=== PATIENT | female | born 1955 | race Caucasian/White ===

== ENCOUNTER 2017-07-12 06:26 | Inpatient (IN) | payer OTHER ==
[2017-07-11 12:05] VITALS: BMI 35.1
[~2017-07-12] VITALS: Ht 160 cm; Wt 91.2 kg
[2017-07-12] VITALS (31 sets, daily range): BP systolic 106–132; BP diastolic 46–84; PULSE 70–89; RESP 5–18; Ht 160 cm; Wt 91.2 kg
[2017-07-12] MEDS ORDERED: ACYC200C2 PO (06:45)
[2017-07-12] MEDS ORDERED: GLIM4TAB PO (06:45)
[2017-07-12] MEDS ORDERED: ZOC10 PO (06:45)
[2017-07-12] MEDS ORDERED: METF500T4 PO ×2 (06:45)
[2017-07-12] MEDS ORDERED: ERGO500037 PO (06:45)
[2017-07-12] MEDS ORDERED: LISI10TA2 PO (06:45)
[2017-07-12] MEDS ORDERED: FLUO10CA17 PO (06:45)
[2017-07-12] MEDS ORDERED: LORA10CA PO (06:45)
[2017-07-12] MEDS ORDERED: SITA100T8 PO (06:45)
[2017-07-12] MEDS ORDERED: OMEP20CA16 PO (06:45)
[2017-07-12] MEDS ORDERED: POLYMYXIN B 500000 UNIT INJ ONE (07:46)
[2017-07-12] MEDS ORDERED: TRANEXAMIC ACID 910 MG in SOD CHLORIDE 0.9% 100 ML IVPB STA (07:56)
[2017-07-12] MEDS ORDERED: morphine SULFATE/PF (10 MG/10 ML) INJ ONE (07:58)
--- NOTE | 2017-07-12 07:58 | HPN ---
Date/Time of Note Date/Time of Note DATE: 07/12/17 TIME: 07:58 Interval H&P Admission Note Pt. seen H&P reviewed: No system changes TOMAS ADAMS MD Jul 12, 2017 07:58
[2017-07-12] MEDS ORDERED: PHENYLephrine (100 MCG/ML) 5ML SYG ONE (08:30)
[2017-07-12] MEDS ORDERED: PROPOFOL 20 ML ONE (08:36)
[2017-07-12] MEDS ORDERED: CEFAZOLIN 1 GM INJ ONE (08:37)
[2017-07-12] MEDS ORDERED: LIDOCAINE 2% (SDV) 5 ML INJ ONE (08:37)
[2017-07-12] MEDS ORDERED: ROCURONIUM 50 MG INJ ONE (08:37)
[2017-07-12] MEDS ORDERED: SUCCINYLCHOLINE CHLORIDE 100 MG/5 ML SYG IV ONE (08:37)
[2017-07-12] MEDS ORDERED: FENTAnyl 50 MCG/ML VIAL IV PRN (09:00)
[2017-07-12] MEDS ORDERED: MEPERIDINE 25 MG INJ IV PRN (09:00)
[2017-07-12] MEDS ORDERED: ONDANSETRON 4 MG INJ IV PRN (09:00)
[2017-07-12] MEDS ORDERED: METOCLOPRAMIDE 10 MG INJ IV PRN (09:00)
[2017-07-12] MEDS ORDERED: HYDROmorphONE (0.2 MG/ML) 10ML SYG IV PRN (09:00)
[2017-07-12] MEDS ORDERED: DIPHENHYDRAMINE 50 MG INJ IV PRN (09:00)
[2017-07-12] MEDS ORDERED: TRANEXAMIC ACID 500 MG in SOD CHLORIDE 0.9% 100 ML IV ONE (09:00)
[2017-07-12] MEDS ORDERED: BACITRACIN 50000 UNITS INJ IRR ONE (09:06)
[2017-07-12] MEDS ORDERED: POLYMYXIN B 500000 UNIT INJ IRR ONE (09:07)
[2017-07-12] MEDS ORDERED: POLYMYXIN/BACITRACIN 1L IRRIG IRR ONE (09:08)
[2017-07-12] MEDS ORDERED: SUGAMMADEX SODIUM 200 MG/2 ML VIAL IV ONE (09:46)
--- NOTE | 2017-07-12 10:45 | OPR ---
Date/Time of Note Date/Time of Note DATE: 07/12/17 TIME: 10:41 Operative Report Free Text/Dictation DATE OF OPERATION: July 12, 2017 PREOPERATIVE DIAGNOSIS: Right knee osteoarthritis. POSTOPERATIVE DIAGNOSIS: Right knee osteoarthritis. OPERATION PERFORMED: Right total knee replacement. SURGEON: Tomas Adams MD TRANSFORMATION COACH: Ibis Marley ANESTHESIOLOGIST: Dr. Britton ANESTHESIA: General endotracheal anesthesia with spinal anesthetic and an adductor canal block. ESTIMATED BLOOD LOSS: 100 cc INDICATIONS FOR PROCEDURE: This is a 62-year-old female who has had progressive pain in the right knee. The patient has failed nonoperative treatment and now presents for elective total knee replacement. Risks and benefits were discussed with the patient, risks including but not limited to infection, bleeding, blood clots, dislocation, fracture, knee stiffness, nerve damage, blood vessel damage, along with other medical, anesthetic and surgical complications were discussed. Informed consent was obtained. DESCRIPTION OF PROCEDURE: The patient's correct extremity was identified in the preoperative area. The patient was brought back to the operating room where a spinal anesthetic was placed followed by an adductor canal block. The correct extremity was then prepped and draped in the standard sterile manner. A timeout was performed. Esmarch was used to exsanguinate. The thigh tourniquet was inflated to 250 mmHg. I then made a standard midline incision for approaching the knee. I went through skin and subcutaneous tissue, made a medial parapatellar arthrotomy. Then, flexed the knee and introduced an intramedullary alignment guide. Distal femoral cut was made and then the extramedullary alignment guide was used to make the tibial cut. Flexion and extension gaps were checked. There were symmetric. The knee went from full extension to full flexion. I then turned my attention to the patella. I used an gwou-cew-paa mill type cutting guide, cut the patellar to appropriate thickness and sized the patella. I then trialed the patella. The patella tracked well without any external pressure. I then made the peg holes for the femoral trial. Punched the tibia. I took out all trial components. Thoroughly irrigated the bony surfaces, dried them with a lap sponge. I then proceeded to cement the tibia, femur and patellar components. A trial insert was used till the cement hardened. After the cement hardened, I thoroughly irrigted the knee. The knee was well balanced. I then let down the tourniquet, obtained adequate hemostasis. I thoroughly irrigated the knee. I then impacted the appropriate all poly insert until it locked into place and I had full range of motion with just a jog of opening with varus and valgus stress. I then turned my attention to closure. I closed the medial parapatellar arthrotomy with interrupted #1 Vicryl, subcutaneous tissue was closed with 2-0 Vicryl, skin with clarence. Dry sterile dressings were applied. The patient had good perfusion to her foot with a 2+ dorsalis pedis pulse. She was then extubated and transported to recovery in stable condition. TOMAS ADAMS MD Jul 12, 2017 10:45
[2017-07-12] MEDS ORDERED: NALOXONE (0.4 MG/ML) INJ IV PRN (11:00)
[2017-07-12] MEDS: CEFAZOLIN 1 GM/50 ML (PMX) 50 ML IVPB SCH ×2 (11:21→18:41)
[2017-07-12] MEDS: ONDANSETRON 4 MG INJ IV SCH ×3 (11:21→23:07)
--- NOTE | 2017-07-12 11:43 | RADRPT ---
PROCEDURE: XR Knee. CLINICAL INDICATION: Postoperative evaluation TECHNIQUE: 2 images of the right knee are available for review. COMPARISON: None available FINDINGS: There is a total right knee arthroplasty in anatomic alignment. There is no acute fracture. Ther e is anterior soft tissue swelling and gas with anterior clarence. There is an anterior drain. IMPRESSION: Recent total right knee arthroplasty as above. RPTAT: UU .Dave Gaytan MD, MD Date Time Electronically viewed and signed by .Dave Gaytan MD, on 07/12/2017 11:42 .K/
--- NOTE | 2017-07-12 12:37 | HP ---
Date/Time of Note Date/Time of Note DATE: 07/12/17 TIME: 12:21 Assessment/Plan VTE Prophylaxis VTE Prophylaxis Intervention: SCD's Lines/Catheters IV Catheter Type (from Nrsg): Peripheral IV Central line still needed: Yes Urinary Cath still in place: Yes Reason Cath still needed: urinary retention Assessment/Plan Assessment/Plan -Severe osteoarthritis of right knee, status post right total knee replacement, continue to follow-up surgical recommendations. Continue postoperative antibiotics, continue aspirin, Roxicodone for pain and Zofran as needed for nausea. -Diabetes mellitus type 2 continue patient's home diabetes medication, Accu- Chek q. before meals and at bedtime with mild algorithm sliding scale coverage of NovoLog -Hypertension, continue lisinopril -Dyslipidemia, continue statin -Depression continue Prozac Further recommendations based on clinical course. Plan of care discussed with Dr. Ruiz. HPI/ROS Admit Date/Time Admit Date/Time Jul 12, 2017 at 06:26 Hx of Present Illness The patient is 62-year-old female with past medical history including diabetes, hypertension, chronic kidney disease stage III with baseline creatinine of 1.2, hyperparathyroidism, hyperlipidemia, depression, and obesity. The patient was diagnosed with right knee osteoarthritis with loss of mobility and with failure of nonoperative treatment. Patient was evaluated by Dr. Orellana in orthopedic surgery consultation, and patient was brought to the hospital and underwent right total knee replacement. Postoperatively patient experienced pain and patient is admitted for further evaluation and management. She denies fever chills denies shortness of breath denies any chest pain, denies abdominal pain. ROS 12 point review of system is negative unless for mentioned in HPI PMH/Family/Social Past Medical History Per HPI Medical History: diabetes, hypertension, renal disease Past Surgical History Status post 3, status post cholecystectomy, status post left wrist surgery for carpal tunnel syndrome Family History Significant Family History: diabetes (Siblings), hypertension Social History Alcohol Use: occasionally Smoking Status: Never smoker Drug Use: none Exam/Review of Systems Vital Signs Vitals Vital Signs Date Time Temp Pulse Resp B/P Pulse Ox O2 Delivery O2 Flow Rate FiO2 07/12/17 11:32 74 5 127/66 96 Room Air 07/12/17 10:35 98.9 Exam Constitutional: alert, oriented Head: normocephalic Neck: supple Respiratory: normal air movement Cardiovascular: nl pulses Gastrointestinal: non-tender, soft Musculoskeletal: other (Status post right total knee replacement) Extremities: normal pulses Neurological: nl mental status Medications Medications Current Medications Oxycodone HCl (Roxicodone) 20 mg Q3H PRN PO PAIN LEVEL 8-10; Start 07/12/17 at 11:00 Oxycodone HCl (Roxicodone) 10 mg Q3H PRN PO PAIN LEVEL 4-7; Start 07/12/17 at 11:00 Oxycodone HCl (Roxicodone) 5 mg Q3H PRN PO PAIN LEVEL 1-3; Start 07/12/17 at 11 :00 Ondansetron HCl 4 mg 4 mg Q6H IV Last administered on 07/12/17 11:21; Admin Dose 4 MG; Start 07/12/17 at 11:00; Stop 07/13/17 at 05:01 Cefazolin Sodium (Ancef 1 Gm/50 ml (Pmx)) 50 ml @ 100 mls/hr Q8H IVPB Last administered on 07/12/17 11:21; Admin Dose 100 MLS/HR; Start 07/12/17 at 11:00 ; Stop 07/13/17 at 03:29 Aspirin (Ecotrin) 325 mg BID PO ; Start 07/13/17 at 09:00 Docusate Sodium (Colace) 200 mg BID PO ; Start 07/13/17 at 09:00; Stop 07/16/17 at 08:59 Naloxone HCl (Narcan) 0.2 mg Q2M PRN IV DECREASED REPIRATORY RATE; Start at 11:00 ZONIA CRANE Jul 12, 2017 12:31
[2017-07-12] MEDS: oxyCODONE 5 MG TAB PO PRN ×5 (12:51→23:24)
[2017-07-12] MEDS: metFORMIN 500 MG TAB PO SCH (17:25)
[2017-07-12] MEDS: INSULIN ASPART [NOVOLOG] 3 ML PEN SC SCH ×2 (17:31→20:13)
[2017-07-12] MEDS: ATORVASTATIN 10 MG TAB PO SCH (21:29)
[2017-07-13 01:00] VITALS: BP 153/63; PULSE 104; RESP 18
[2017-07-13] MEDS ORDERED: oxyCODONE 5 MG TAB PO ONE (01:30)
[2017-07-13] MEDS: ACCU-CHEK XX SCH (02:00)
[2017-07-13] MEDS ORDERED: ACCU-CHEK XX SCH (02:00)
[2017-07-13] MEDS: CEFAZOLIN 1 GM/50 ML (PMX) 50 ML IVPB SCH (03:10)
[2017-07-13] MEDS: morphine 1 MG/ML 30 ML (PCA) IV SCH ×2 (04:22→12:42)
[2017-07-13 05:00] VITALS: BP 140/62; PULSE 108; RESP 18
[2017-07-13] MEDS: ONDANSETRON 4 MG INJ IV SCH (05:22)
[2017-07-13] MEDS: PANTOPRAZOLE (EC) 40 MG TAB PO SCH (05:22)
[2017-07-13 06:03] LABS: BASOPHILS % 0.2 % (0.0-2.0); HEMATOCRIT 31.6 % (37.0-47.0); HEMOGLOBIN 10.3 g/dl (12.0-16.0); LYMPHOCYTES % 11.2 % (15.0-51.0); MEAN CORPUSCULAR HEMOGLOBIN 31.1 pg (29.0-33.0); MEAN CORPUSCULAR HGB CONC 32.6 g/dl (32.0-37.0); MEAN CORPUSCULAR VOLUME 95.5 fl (82.0-101.0); MEAN PLATELET VOLUME 11.6 fl (7.4-10.4); MONOCYTE # 1.3 10^3/ul (0.3-0.9); MONOCYTES % 13.9 % (0.0-11.0); NEUTROPHILS % 74.3 % (39.0-77.0); PLATELET COUNT 147 10^3/UL (140-415); RED BLOOD COUNT 3.31 10^6/ul (4.20-5.40); RED CELL DISTRIBUTION WIDTH 12.5 % (11.5-14.5); WHITE BLOOD COUNT 9.2 10^3/ul (4.8-10.8)
[2017-07-13 06:25] LABS: CALCIUM 9.8 mg/dl (8.4-10.2); CREATININE 1.17 mg/dl (0.44-1.00); POTASSIUM 4.6 mmol/L (3.5-5.1)
[2017-07-13] MEDS ORDERED: GLIMEPIRIDE 4 MG TAB PO SCH (07:50)
[2017-07-13 08:20] VITALS: BP 139/67; RESP 17
[2017-07-13] MEDS: metFORMIN 500 MG TAB PO SCH ×2 (08:45→17:38)
[2017-07-13] MEDS: DOCUSATE SODIUM 100 MG CAP PO SCH ×2 (08:45→20:18)
[2017-07-13] MEDS: ASPIRIN (EC) 325 MG TAB PO SCH ×2 (08:45→20:18)
[2017-07-13] MEDS: LINAGLIPTIN 5 MG TABLET PO SCH (08:45)
[2017-07-13] MEDS: LISINOPRIL 10 MG TAB PO SCH (08:46)
[2017-07-13] MEDS: INSULIN ASPART [NOVOLOG] 3 ML PEN SC SCH ×4 (08:54→20:44)
[2017-07-13] MEDS: FLUOXETINE 10 MG CAP PO SCH (08:56)
--- NOTE | 2017-07-13 09:58 | PN ---
Date/Time of Note Date/Time of Note DATE: 07/13/17 TIME: 09:58 Assessment/Plan VTE Prophylaxis VTE Prophylaxis Intervention: other Lines/Catheters IV Catheter Type (from Nrsg): Peripheral IV Urinary Cath still in place: Yes Reason Cath still needed: skin wounds contaminated by urine Assessment/Plan Chief Complaint/Hosp Course -Severe osteoarthritis of right knee, status post right total knee replacement, continue to follow-up surgical recommendations. Continue postoperative antibiotics, continue aspirin, Roxicodone for pain and Zofran as needed for nausea. -Diabetes mellitus type 2 continue patient's home diabetes medication, Accu- Chek q. before meals and at bedtime with mild algorithm sliding scale coverage of NovoLog -Hypertension, continue lisinopril -Dyslipidemia, continue statin -Depression continue Prozac Problems: Subjective 24 Hr Interval Summary Free Text/Dictation Patient has pain in knee Exam/Review of Systems Vital Signs Vitals Vital Signs Date Time Temp Pulse Resp B/P Pulse Ox O2 Delivery O2 Flow Rate FiO2 07/13/17 08:20 99.3 112 17 139/67 100 07/13/17 05:00 Nasal Cannula Intake and Output 07/12/17 07/12/17 07/13/17 15:00 23:00 07:00 Intake Total 1200 ml 630 ml 530 ml Output Total 490 ml 600 ml 750 ml Balance 710 ml 30 ml -220 ml Exam Constitutional: well developed Head: atraumatic, normocephalic Neck: supple Respiratory: clear to auscultation Cardiovascular: regular rate and rhythm Gastrointestinal: non-tender, soft Extremities: normal pulses Results Result Diagram: 07/13/17 0514 07/13/17 0513 Results 24 hrs Laboratory Tests Test 07/12/17 12:45 07/12/17 17:29 07/12/17 20:04 07/13/17 05:13 Bedside Glucose 148 78 165 Sodium Level 131 L Potassium Level 4.6 Chloride Level 98 Carbon Dioxide Level 27 Anion Gap 11 Blood Urea Nitrogen 14 Creatinine 1.17 H Glucose Level 198 Calcium Level 9.8 Test 07/13/17 05:14 07/13/17 08:43 White Blood Count 9.2 Red Blood Count 3.31 L Hemoglobin 10.3 L Hematocrit 31.6 L Mean Corpuscular Volume 95.5 Mean Corpuscular Hemoglobin 31.1 Mean Corpuscular Hemoglobin Concent 32.6 Red Cell Distribution Width 12.5 Platelet Count 147 Mean Platelet Volume 11.6 H Neutrophils % 74.3 Lymphocytes % 11.2 L Monocytes % 13.9 H Eosinophils % 0.0 Basophils % 0.2 Nucleated Red Blood Cells % 0.0 Neutrophils # (Manual) 7 Lymphocytes # 1.0 Monocytes # 1.3 H Eosinophils # 0.0 Basophils # 0.0 Nucleated Red Blood Cells # 0.0 Bedside Glucose 175 Medications Medications Current Medications Oxycodone HCl (Roxicodone) 20 mg Q3H PRN PO PAIN LEVEL 8-10 Last administered on 07/12/17 23:24; Admin Dose 20 MG; Start 07/12/17 at 11:00 Oxycodone HCl (Roxicodone) 10 mg Q3H PRN PO PAIN LEVEL 4-7 Last administered on 07/12/17 17:25; Admin Dose 10 MG; Start 07/12/17 at 11:00 Oxycodone HCl (Roxicodone) 5 mg Q3H PRN PO PAIN LEVEL 1-3 Last administered on 07/12/17 14:25; Admin Dose 5 MG; Start 07/12/17 at 11:00 Aspirin (Ecotrin) 325 mg BID PO Last administered on 07/13/17 08:45; Admin Dose 325 MG; Start 07/13/17 at 09:00 Docusate Sodium (Colace) 200 mg BID PO Last administered on 07/13/17 08:45; Admin Dose 200 MG; Start 07/13/17 at 09:00; Stop 07/16/17 at 08:59 Naloxone HCl (Narcan) 0.2 mg Q2M PRN IV DECREASED REPIRATORY RATE; Start at 11:00 Fluoxetine HCl (Prozac) 10 mg DAILY PO Last administered on 07/13/17 08:56; Admin Dose 10 MG; Start 07/13/17 at 09:00 Lisinopril (Zestril) 10 mg DAILY PO Last administered on 07/13/17 08:46; Admin Dose 10 MG; Start 07/13/17 at 09:00 Pantoprazole (Protonix Tab) 40 mg DAILY@06 PO Last administered on 07/13/17 05 :22; Admin Dose 40 MG; Start 07/13/17 at 06:00 Atorvastatin Calcium (Lipitor) 10 mg DAILY@21 PO Last administered on 21:29; Admin Dose 10 MG; Start 07/12/17 at 21:00 Linagliptin (Tradjenta) 5 mg DAILY PO Last administered on 07/13/17 08:45; Admin Dose 5 MG; Start 07/13/17 at 09:00 Diagnostic Test (Pha) (Accu-Chek) 1 ea 02 XX ; Start 07/13/17 at 02:00 Morphine Sulfate (morphine) 0 MG/HR CONTINUOUS RATE 1... Q4PCA IV Last administered on 07/13/17 04:22; Admin Dose 30 MG; Start 07/13/17 at 02:00 VITALIY SAAVEDRA Jul 13, 2017 09:58
[2017-07-13] MEDS ORDERED: CEPASTAT LOZENGE MT PRN (11:30)
[2017-07-13 14:00] VITALS: BP 133/61; RESP 15
[2017-07-13 19:10] VITALS: BP 125/59; RESP 20
[2017-07-13] MEDS: ATORVASTATIN 10 MG TAB PO SCH (20:18)
[2017-07-14] MEDS: morphine 1 MG/ML 30 ML (PCA) IV SCH (00:21)
[2017-07-14 01:46] VITALS: BP 122/59; RESP 18
[2017-07-14] MEDS: ACCU-CHEK XX SCH (02:00)
[2017-07-14 05:08] LABS: ABNORMAL IP MESSAGE 1; BASOPHILS % 0.2 % (0.0-2.0); EOSINOPHILS # 0.1 10^3/ul (0.0-0.5); EOSINOPHILS % 0.7 % (0.0-7.0); HEMATOCRIT 29.4 % (37.0-47.0); LYMPHOCYTES # 1.8 10^3/ul (0.8-2.9); LYMPHOCYTES % 15.6 % (15.0-51.0); MEAN CORPUSCULAR HEMOGLOBIN 31.7 pg (29.0-33.0); MEAN CORPUSCULAR VOLUME 93.3 fl (82.0-101.0); MEAN PLATELET VOLUME 11.2 fl (7.4-10.4); MONOCYTE # 1.9 10^3/ul (0.3-0.9); NEUTROPHILS % 66.4 % (39.0-77.0); PLATELET COUNT 150 10^3/UL (140-415); RED BLOOD COUNT 3.15 10^6/ul (4.20-5.40); RED CELL DISTRIBUTION WIDTH 12.4 % (11.5-14.5); WHITE BLOOD COUNT 11.3 10^3/ul (4.8-10.8)
[2017-07-14 05:39] LABS: CALCIUM 10.1 mg/dl (8.4-10.2); CREATININE 1.26 mg/dl (0.44-1.00); POTASSIUM 4.6 mmol/L (3.5-5.1)
[2017-07-14] MEDS: PANTOPRAZOLE (EC) 40 MG TAB PO SCH (06:07)
[2017-07-14 06:19] LABS: POSITIVE DIFF @See below
[2017-07-14 06:20] LABS: MONOCYTES % 16.7 % (0.0-11.0)
[2017-07-14 07:57] VITALS: BP 118/55; RESP 16
[2017-07-14] MEDS: FLUOXETINE 10 MG CAP PO SCH (08:38)
[2017-07-14] MEDS: ASPIRIN (EC) 325 MG TAB PO SCH ×2 (08:38→20:32)
[2017-07-14] MEDS: DOCUSATE SODIUM 100 MG CAP PO SCH ×2 (08:38→20:32)
[2017-07-14] MEDS: metFORMIN 500 MG TAB PO SCH ×2 (08:38→18:06)
[2017-07-14] MEDS: LINAGLIPTIN 5 MG TABLET PO SCH (08:39)
[2017-07-14] MEDS: LISINOPRIL 10 MG TAB PO SCH (08:39)
[2017-07-14] MEDS: INSULIN ASPART [NOVOLOG] 3 ML PEN SC SCH ×4 (08:40→20:31)
--- NOTE | 2017-07-14 11:46 | PN ---
Date/Time of Note Date/Time of Note DATE: 07/14/17 TIME: 11:46 Assessment/Plan VTE Prophylaxis VTE Prophylaxis Intervention: other Lines/Catheters IV Catheter Type (from Nrsg): Peripheral IV Urinary Cath still in place: Yes Reason Cath still needed: skin wounds contaminated by urine Assessment/Plan Chief Complaint/Hosp Course -Severe osteoarthritis of right knee, status post right total knee replacement, continue to follow-up surgical recommendations. Continue postoperative antibiotics, continue aspirin, Roxicodone for pain and Zofran as needed for nausea. -Diabetes mellitus type 2 continue patient's home diabetes medication, Accu- Chek q. before meals and at bedtime with mild algorithm sliding scale coverage of NovoLog -Hypertension, continue lisinopril -Dyslipidemia, continue statin -Depression continue Prozac Problems: Subjective 24 Hr Interval Summary Free Text/Dictation Has some pain but still able to ambulate Exam/Review of Systems Vital Signs Vitals Vital Signs Date Time Temp Pulse Resp B/P Pulse Ox O2 Delivery O2 Flow Rate FiO2 07/14/17 07:57 99.3 110 16 118/55 93 07/13/17 05:00 Nasal Cannula Intake and Output 07/13/17 07/13/17 07/14/17 14:59 22:59 06:59 Intake Total 600 ml 600 ml Output Total 2000 ml 500 ml Balance -1400 ml 100 ml Exam Constitutional: well developed Head: atraumatic, normocephalic Neck: supple Respiratory: clear to auscultation Cardiovascular: regular rate and rhythm Gastrointestinal: non-tender, soft Extremities: normal pulses Results Result Diagram: 07/14/17 0441 07/14/17 0441 Results 24 hrs Laboratory Tests Test 07/13/17 12:24 07/13/17 17:37 07/13/17 20:20 07/14/17 02:11 Bedside Glucose 206 215 223 H 196 Test 07/14/17 04:41 07/14/17 08:34 White Blood Count 11.3 #H Red Blood Count 3.15 L Hemoglobin 10.0 L Hematocrit 29.4 L Mean Corpuscular Volume 93.3 Mean Corpuscular Hemoglobin 31.7 Mean Corpuscular Hemoglobin Concent 34.0 Red Cell Distribution Width 12.4 Platelet Count 150 Mean Platelet Volume 11.2 H Neutrophils % 66.4 Lymphocytes % 15.6 Monocytes % 16.7 H Eosinophils % 0.7 Basophils % 0.2 Nucleated Red Blood Cells % 0.0 Neutrophils # (Manual) 7 Lymphocytes # 1.8 Monocytes # 1.9 H Eosinophils # 0.1 Basophils # 0.0 Nucleated Red Blood Cells # 0.0 Sodium Level 129 L Potassium Level 4.6 Chloride Level 95 L Carbon Dioxide Level 28 Anion Gap 11 Blood Urea Nitrogen 14 Creatinine 1.26 H Glucose Level 196 Calcium Level 10.1 Bedside Glucose 162 Medications Medications Current Medications Oxycodone HCl (Roxicodone) 20 mg Q3H PRN PO PAIN LEVEL 8-10 Last administered on 07/12/17 23:24; Admin Dose 20 MG; Start 07/12/17 at 11:00 Oxycodone HCl (Roxicodone) 10 mg Q3H PRN PO PAIN LEVEL 4-7 Last administered on 07/12/17 17:25; Admin Dose 10 MG; Start 07/12/17 at 11:00 Oxycodone HCl (Roxicodone) 5 mg Q3H PRN PO PAIN LEVEL 1-3 Last administered on 07/12/17 14:25; Admin Dose 5 MG; Start 07/12/17 at 11:00 Aspirin (Ecotrin) 325 mg BID PO Last administered on 07/14/17 08:38; Admin Dose 325 MG; Start 07/13/17 at 09:00 Docusate Sodium (Colace) 200 mg BID PO Last administered on 07/14/17 08:38; Admin Dose 200 MG; Start 07/13/17 at 09:00; Stop 07/16/17 at 08:59 Naloxone HCl (Narcan) 0.2 mg Q2M PRN IV DECREASED REPIRATORY RATE; Start at 11:00 Fluoxetine HCl (Prozac) 10 mg DAILY PO Last administered on 07/14/17 08:38; Admin Dose 10 MG; Start 07/13/17 at 09:00 Lisinopril (Zestril) 10 mg DAILY PO Last administered on 07/14/17 08:39; Admin Dose 10 MG; Start 07/13/17 at 09:00 Pantoprazole (Protonix Tab) 40 mg DAILY@06 PO Last administered on 07/14/17 06 :07; Admin Dose 40 MG; Start 07/13/17 at 06:00 Atorvastatin Calcium (Lipitor) 10 mg DAILY@21 PO Last administered on 20:18; Admin Dose 10 MG; Start 07/12/17 at 21:00 Linagliptin (Tradjenta) 5 mg DAILY PO Last administered on 07/14/17 08:39; Admin Dose 5 MG; Start 07/13/17 at 09:00 Diagnostic Test (Pha) (Accu-Chek) 1 ea 02 XX ; Start 07/13/17 at 02:00 Morphine Sulfate (morphine) 0 MG/HR CONTINUOUS RATE 1... Q4PCA IV Last administered on 07/14/17 00:21; Admin Dose 30 MG; Start 07/13/17 at 02:00 Phenol (Cepastat Lozenge) 1 lozenge Q1H PRN MT SORE THROAT; Start 07/13/17 at 11:30 VITALIY SAAVEDRA Jul 14, 2017 11:46
--- NOTE | 2017-07-14 16:02 | PN ---
Date/Time of Note Date/Time of Note DATE: 07/14/17 TIME: 15:59 Assessment/Plan Lines/Catheters IV Catheter Type (from Nrsg): Peripheral IV Boateng in Place (from Nrsg): Yes Assessment/Plan Assessment/Plan Postop day 2 status post right total knee replacement Patient is doing well Next. Her pain is well controlled my plan is continue CPM and gait training with physical therapy Aspirin and SCDs for DVT prophylaxis. Discharge planning can be started she can be discharged home tomorrow. She has had low-grade temperatures. Recommend continued use of incentive spirometer. Upon discharge I recommend aspirin 325 mg p.o. twice daily for 2 weeks Subjective 24 Hr Interval Summary Patient has no complaints. She ambulated with physical therapy today Exam/Review of Systems Vital Signs Vitals Vital Signs Date Time Temp Pulse Resp B/P Pulse Ox O2 Delivery O2 Flow Rate FiO2 07/14/17 07:57 99.3 110 16 118/55 93 07/13/17 05:00 Nasal Cannula Intake and Output 07/13/17 07/13/17 07/14/17 15:00 23:00 07:00 Intake Total 600 ml 600 ml Output Total 2000 ml 500 ml Balance -1400 ml 100 ml Exam Free Text/Dictation Evaluation of the right lower extremity reveals the incision is clean dry and intact there is no erythema. Calf is soft and nontender. The foot is warm well perfused she has intact motor and sensory function in the right foot Results Result Diagram: 07/14/17 0441 07/14/17 0441 TOMSA ADAMS MD Jul 14, 2017 16:02
--- NOTE | 2017-07-14 16:03 | PDOCDIS ---
Discharge Instructions CONDITION Patient Condition: Good HOME CARE INSTRUCTIONS: Diet Instructions: Regular FOLLOW UP/APPOINTMENTS Follow-up Plan Dr. Adams 2 weeks OTHER ORDERS: Other Orders: Aspirin 325 mg po bid x 2 week CPM for home use. Twice daily. 0-90 degrees TOMAS ADAMS MD Jul 14, 2017 16:03
[2017-07-14] MEDS: oxyCODONE 5 MG TAB PO PRN ×2 (16:40→18:06)
[2017-07-14 19:03] VITALS: BP 134/80; RESP 16
[2017-07-14] MEDS: ATORVASTATIN 10 MG TAB PO SCH (20:32)
[2017-07-15 01:46] VITALS: BP 135/61; RESP 18
[2017-07-15 01:54] VITALS: BP 127/56; PULSE 106; RESP 17
[2017-07-15] MEDS: ACCU-CHEK XX SCH (02:00)
[2017-07-15] MEDS: PANTOPRAZOLE (EC) 40 MG TAB PO SCH (05:27)
[2017-07-15 05:30] LABS: BASOPHILS % 0.3 % (0.0-2.0); EOSINOPHILS # 0.1 10^3/ul (0.0-0.5); EOSINOPHILS % 0.9 % (0.0-7.0); HEMATOCRIT 28.1 % (37.0-47.0); HEMOGLOBIN 9.8 g/dl (12.0-16.0); LYMPHOCYTES # 1.2 10^3/ul (0.8-2.9); LYMPHOCYTES % 12.8 % (15.0-51.0); MEAN CORPUSCULAR HEMOGLOBIN 32.5 pg (29.0-33.0); MEAN CORPUSCULAR HGB CONC 34.9 g/dl (32.0-37.0); MEAN PLATELET VOLUME 11.5 fl (7.4-10.4); MONOCYTE # 1.3 10^3/ul (0.3-0.9); MONOCYTES % 13.3 % (0.0-11.0); NEUTROPHILS % 72.4 % (39.0-77.0); PLATELET COUNT 151 10^3/UL (140-415); RED BLOOD COUNT 3.02 10^6/ul (4.20-5.40); RED CELL DISTRIBUTION WIDTH 12.3 % (11.5-14.5); WHITE BLOOD COUNT 9.6 10^3/ul (4.8-10.8)
[2017-07-15] MEDS: oxyCODONE 5 MG TAB PO PRN ×2 (06:03→16:33)
[2017-07-15 06:12] LABS: CALCIUM 10.3 mg/dl (8.4-10.2); CREATININE 1.06 mg/dl (0.44-1.00); POTASSIUM 4.5 mmol/L (3.5-5.1)
[2017-07-15 07:56] VITALS: BP 143/68; RESP 18
[2017-07-15] MEDS: INSULIN ASPART [NOVOLOG] 3 ML PEN SC SCH ×3 (09:21→18:13)
[2017-07-15] MEDS: ASPIRIN (EC) 325 MG TAB PO SCH (09:23)
[2017-07-15] MEDS: LINAGLIPTIN 5 MG TABLET PO SCH (09:23)
[2017-07-15] MEDS: metFORMIN 500 MG TAB PO SCH ×2 (09:24→18:13)
[2017-07-15] MEDS: DOCUSATE SODIUM 100 MG CAP PO SCH (09:24)
[2017-07-15] MEDS: FLUOXETINE 10 MG CAP PO SCH (09:24)
[2017-07-15] MEDS: LISINOPRIL 10 MG TAB PO SCH (09:24)
[2017-07-15 14:08] VITALS: BP 112/55; RESP 16
--- NOTE | 2017-07-15 15:06 | PN ---
Date/Time of Note Date/Time of Note DATE: 07/15/17 TIME: 15:04 Assessment/Plan Lines/Catheters IV Catheter Type (from Nrsg): Saline Lock Boateng in Place (from Nrsg): No Assessment/Plan Assessment/Plan Postop day 3 status post right total knee replacement. Patient is doing well she can be discharged to home whenever her equipment has been set up. She will need home physical therapy, CPM, elevated toilet seat, frontwheel walker. She will also need to be on aspirin 325 mg p.o. twice daily for 2 weeks. Follow -up in my office in 2 weeks time Subjective 24 Hr Interval Summary Patient has no complaints. She ambulated with physical therapy earlier today Exam/Review of Systems Vital Signs Vitals Vital Signs Date Time Temp Pulse Resp B/P Pulse Ox O2 Delivery O2 Flow Rate FiO2 07/15/17 14:08 98.6 90 16 112/55 96 07/15/17 01:54 Room Air Intake and Output 07/14/17 07/14/17 07/15/17 15:00 23:00 07:00 Intake Total 700 ml 480 ml Output Total 900 ml Balance -200 ml 480 ml Exam Free Text/Dictation Her right knee wound is clean dry and intact there is no erythema. Calf is soft. She is intact motor and sensory function in the right foot. Results Result Diagram: 07/15/17 0445 07/15/17 0445 TOMAS ADAMS MD Jul 15, 2017 15:05
[2017-07-15] MEDS ORDERED: METF1000 PO (15:59)
[2017-07-15] MEDS ORDERED: HYDR-906 PO (15:59)
[2017-07-15] MEDS ORDERED: ASPI325T32 PO (15:59)
--- NOTE | 2017-07-15 16:06 | DS ---
Date/Time of Note Date/Time of Note DATE: 07/15/17 TIME: 16:04 Discharge Summary Admission/Discharge Info Admit Date/Time Jul 12, 2017 at 06:26 Discharge Date/Time Patient Condition: Stable Hx of Present Illness The patient is 62-year-old female with past medical history including diabetes, hypertension, chronic kidney disease stage III with baseline creatinine of 1.2, hyperparathyroidism, hyperlipidemia, depression, and obesity. The patient was diagnosed with right knee osteoarthritis with loss of mobility and with failure of nonoperative treatment. Patient was evaluated by Dr. Orellana in orthopedic surgery consultation, and patient was brought to the hospital and underwent right total knee replacement. Postoperatively patient experienced pain and patient is admitted for further evaluation and management. She denies fever chills denies shortness of breath denies any chest pain, denies abdominal pain. Hospital Course -Severe osteoarthritis of right knee, status post right total knee replacement, continue to follow-up surgical recommendations. Continue postoperative antibiotics, continue aspirin, Roxicodone for pain and Zofran as needed for nausea. Patient started on CPM and physical therapy. Discharge home with home health services. -Diabetes mellitus type 2 continue patient's home diabetes medication, Accu- Chek q. before meals and at bedtime with mild algorithm sliding scale coverage of NovoLog, continued on metformin. -Hypertension, continue lisinopril -Dyslipidemia, continue statin -Depression continue Prozac Home Meds Active Scripts Hydrocodone/Acetaminophen ([place] 5-325 Tablet) 1 Each Tablet, 1 EACH PO Q4 for PAIN, #30 TAB Prov:ZONIA CRANE 07/15/17 Metformin Hcl* (Metformin Hcl*) 1,000 Mg Tablet, 1000 MG PO WITH BREAKFAST DINNE , #60 TAB Prov:ZONIA CRANE 07/15/17 Aspirin (Aspir-Kimberly) 325 Mg Tablet., 325 MG PO BID for 14 Days Prov:ZONIA CRANE 07/15/17 Reported Medications Simvastatin (Simvastatin) 10 Mg Tablet, 10 MG PO DAILY, #30 TAB 07/12/17 Metformin* (Glucophage*) 500 Mg Tab, 500 MG PO WITH MEALS, #90 TAB 07/12/17 Metformin* (Glucophage*) 500 Mg Tab, 500 MG PO WITH BREAKFAST, #30 TAB 07/12/17 Loratadine* (Claritin*) 10 Mg Capsule, 10 MG PO DAILY, CAP 07/12/17 Fluoxetine Hcl* (Fluoxetine Hcl*) 10 Mg Capsule, 10 MG PO DAILY, CAP 07/12/17 Lisinopril* (Lisinopril*) 10 Mg Tablet, 10 MG PO DAILY, #30 TAB 07/12/17 Glimepiride* (Glimepiride*) 4 Mg Tablet, 4 MG PO WITH BREAKFAST, TAB 07/12/17 Sitagliptin* (Januvia*) 100 Mg Tablet, 100 MG PO DAILY, #30 TAB 07/12/17 Ergocalciferol (Vitamin D2) (VITAMIN D2) 50,000 Unit Capsule, 80424 UNIT PO, CAP 07/12/17 Omeprazole* (Omeprazole*) 20 Mg Capsule.dr, 20 MG PO DAILY, #30 CAP 07/12/17 Acyclovir* (Acyclovir*) 200 Mg Capsule, 200 MG PO 5 TIMES DAILY, CAP 07/12/17 Follow-up Plan Follow-up was Dr. Orellana in 2 weeks, follow-up with PMD for management of diabetes. Primary Care Provider [facility] Pending Labs Laboratory Tests Test 07/14/17 17:35 07/14/17 20:28 07/15/17 01:56 07/15/17 04:45 Bedside Glucose 200mg/dL (70-220) 199mg/dL (70-220) 227mg/dL (70-220) White Blood Count 9.610^3/ul (4.8-10.8) Red Blood Count 3.0210^6/ul (4.20-5.40) Hemoglobin 9.8g/dl (12.0-16.0) Hematocrit 28.1% (37.0-47.0) Mean Corpuscular Volume 93.0fl (82.0-101.0) Mean Corpuscular Hemoglobin 32.5pg (29.0-33.0) Mean Corpuscular Hemoglobin Concent 34.9g/dl (32.0-37.0) Red Cell Distribution Width 12.3% (11.5-14.5) Platelet Count 48755^3/UL (140-415) Mean Platelet Volume 11.5fl (7.4-10.4) Neutrophils % 72.4% (39.0-77.0) Lymphocytes % 12.8% (15.0-51.0) Monocytes % 13.3% (0.0-11.0) Eosinophils % 0.9% (0.0-7.0) Basophils % 0.3% (0.0-2.0) Nucleated Red Blood Cells % 0.0/100WBC (0.0-0.0) Neutrophils # (Manual) 710^3/ul (1.7-7.5) Lymphocytes # 1.210^3/ul (0.8-2.9) Monocytes # 1.310^3/ul (0.3-0.9) Eosinophils # 0.110^3/ul (0.0-0.5) Basophils # 0.010^3/ul (0.0-0.1) Nucleated Red Blood Cells # 0.010^3/ul (0.0-0.0) Sodium Level 132mmol/L (135-144) Potassium Level 4.5mmol/L (3.5-5.1) Chloride Level 94mmol/L (97-110) Carbon Dioxide Level 25mmol/L (21-31) Anion Gap 18 (8-16) Blood Urea Nitrogen 14mg/dl (7-20) Creatinine 1.06mg/dl (0.44-1.00) Glucose Level 192mg/dl (70-220) Calcium Level 10.3mg/dl (8.4-10.2) Test 07/15/17 08:32 07/15/17 12:27 Bedside Glucose 178mg/dL (70-220) 194mg/dL (70-220) ZONIA CRANE Jul 15, 2017 16:06
== END 2017-07-15 19:00 | disposition home health service (06) | DRG 470 ==
LOC: REC 06:26 → MS1 11:32
PROVIDERS: ADMIT Specialist; ATTEND Specialist
PROC: 0SRC0J9 Replacement of Right Knee Joint with Synthetic Substitute, Cemented, Open Approach (ICD-10-PCS; principal; 2017-07-12 08:00)
DX: M17.11 Unilateral primary osteoarthritis, right knee (principal); E11.22 Type 2 diabetes mellitus with diabetic chronic kidney disease; N18.3 Chronic kidney disease, stage 3 (moderate); I12.9 Hypertensive chronic kidney disease with stage 1 through stage 4 chronic kidney disease, or unspecified chronic kidney disease; F32.9 Major depressive disorder, single episode, unspecified; E78.5 Hyperlipidemia, unspecified; R33.9 Retention of urine, unspecified; Z79.82 Long term (current) use of aspirin
CPT/HCPCS: 73560; 80048; 82962; 85025; 86850; 86900; 86901; 87086; 88304; 88311; 97110; 97116; 97163; 97530; C1713; J0690; J1815; J2270; J2274; J2370; J2405; J7999

== ENCOUNTER 2017-10-21 05:50 | Inpatient (IN) | payer OTHER ==
[2017-10-21] VITALS (15 sets, daily range): BP systolic 105–132; BP diastolic 48–63; PULSE 68–75; RESP 10–18; Ht 162.6 cm; Wt 86.2 kg
[~2017-10-21] VITALS: Ht 162.6 cm; Wt 86.2 kg
[~2017-10-21 05:50] MED LIST: ASPI325T32 PO; ERGO500037 PO; FLUO10CA17 PO; GLIM4TAB PO; HYDR-906 PO; LISI10TA2 PO; METF1000 PO; OMEP20CA16 PO; SITA100T8 PO; ZOC10 PO
[2017-10-21] MEDS ORDERED: CEFAZOLIN 2 GM/50 ML (PMX) 50 ML IVPB SCH (06:00)
[2017-10-21] MEDS ORDERED: SOD CHLORIDE 0.9% 1,000 ML IV SCH (06:00)
[2017-10-21] MEDS ORDERED: LORA10CA PO (07:08)
[2017-10-21] MEDS ORDERED: FLUT16SP17 NASAL (07:09)
[2017-10-21] MEDS ORDERED: FLUO20CA38 PO (07:10)
[2017-10-21] MEDS ORDERED: METF500T4 PO (07:11)
[2017-10-21] MEDS ORDERED: GLIM4TAB PO (07:11)
[2017-10-21] MEDS ORDERED: SITA100T8 PO (07:12)
[2017-10-21] MEDS ORDERED: CHOL100062 PO (07:12)
[2017-10-21] MEDS ORDERED: SIMV10TA PO (07:14)
[2017-10-21] MEDS ORDERED: BUPIVACAINE 0.25% (MPF) 30 ML INJ ONE (08:25)
[2017-10-21] MEDS ORDERED: PROPOFOL 20 ML ONE (08:40)
[2017-10-21] MEDS ORDERED: FENTAnyl 50 MCG/ML VIAL ONE ×2 (08:42→09:00)
[2017-10-21] MEDS ORDERED: LABETALOL HCL 20MG INJ IV PRN (09:00)
[2017-10-21] MEDS ORDERED: HYDROmorphONE (0.2 MG/ML) 10ML SYG IV PRN ×3 (09:00)
[2017-10-21] MEDS ORDERED: OXYCODONE/ACETAMINOPHEN (5/325) TAB PO PRN ×2 (09:00)
[2017-10-21] MEDS ORDERED: METOCLOPRAMIDE 10 MG INJ IV PRN (09:00)
[2017-10-21] MEDS ORDERED: MEPERIDINE 25 MG INJ IV PRN (09:00)
[2017-10-21] MEDS ORDERED: DIPHENHYDRAMINE 50 MG INJ IV PRN (09:00)
[2017-10-21] MEDS ORDERED: ONDANSETRON 4 MG INJ IV PRN (09:00)
[2017-10-21] MEDS ORDERED: INSULIN ASPART [NOVOLOG] 3 ML PEN SC ONE (09:00)
[2017-10-21] MEDS ORDERED: MIDAZOLAM 1 MG/ML 2 ML INJ IV PRN (09:00)
[2017-10-21] MEDS ORDERED: hydrALAzine 20 MG INJ IV PRN (09:00)
[2017-10-21] MEDS ORDERED: EPHEDrine SULFATE 50 MG/5 ML SYG IV PRN (09:00)
[2017-10-21] MEDS ORDERED: FENTAnyl 50 MCG/ML VIAL IV PRN ×3 (09:00)
[2017-10-21] MEDS ORDERED: CEFAZOLIN 1 GM INJ ONE (09:02)
[2017-10-21] MEDS ORDERED: ROCURONIUM 50 MG INJ ONE (09:02)
[2017-10-21] MEDS ORDERED: LIDOCAINE 2% (SDV) 5 ML INJ ONE (09:02)
[2017-10-21] MEDS ORDERED: LABETALOL HCL 20MG INJ ONE (09:12)
[2017-10-21] MEDS ORDERED: SUGAMMADEX SODIUM 200 MG/2 ML VIAL IV ONE (09:42)
[2017-10-21] MEDS ORDERED: ONDANSETRON 4 MG INJ ONE (09:44)
[2017-10-21] MEDS ORDERED: DEXAMETHASONE 4 MG/ML 1 ML INJ ONE (09:44)
--- NOTE | 2017-10-21 09:47 | OPR ---
Date/Time of Note Date/Time of Note DATE: 10/21/17 TIME: 09:44 Operative Report Procedure Date: Oct 21, 2017 Preoperative Diagnosis hyperparathyroidism Postoperative Diagnosis same Operation/Procedure Performed 1. left lower parathyroidectomy 2. therapeutic injection of subcutaneous local anesthesia Surgeon see signature line Pasteurizer Helper none Anesthesia Type: general Estimated Blood Loss: 0 - 10 ml's Transfusion none Specimen left lower parathyroid Grafts/Implants none Complications none Pt Condition Post Procedure: stable Indications This is a 62-year-old female with hyperparathyroidism. Imaging revealed left lower hyper active parathyroid. She is brought to the OR for a left lower parathyroidectomy. Risks alternatives benefits and percent were discussed the patient. Patient expresses understanding consents to the operation. Procedure Description Patient is taken to the OR and prepped and draped in usual sterile fashion. Surgical timeout was performed. IV antibiotics given. Collar incision was made with a 15 blade. Dissection Carrs carried onto the platysma. Superior inferior platysmal flaps are created. The strap muscles were split in the midline. Attention was then paid after ligating the medial thyroidal vein. The left lower parathyroid area is carefully examined. An obvious left lower parathyroid was found. The base of the vascular bundle was identified and clipped and divided. This was sent for intraoperative pathology examination. This revealed that it was a hypercellular gland. The surgical site was irrigated and Valsalva maneuver to 40 cm of water was performed. There is no evidence of any air leakage or any bleeding. The strap muscles then reapproximated with interrupted 3-0 Vicryl. The platysma was closed with interrupted 3-0 Vicryl. Skin was closed using interrupted 3-0 Vicryl and running 4-0 Monocryl. Therapeutic subcutaneous local anesthesia was injected throughout the incision site. Dry dressings were applied. Andrea RICHTER Oct 21, 2017 09:47
[2017-10-21] MEDS ORDERED: HYDROCODONE/APAP (5/325) TAB PO PRN (10:00)
[2017-10-21] MEDS: CEFAZOLIN 2 GM/50 ML (PMX) 50 ML IVPB SCH ×2 (10:15→19:06)
[2017-10-21 10:26] LABS: BASOPHILS % 0.5 % (0.0-2.0); EOSINOPHILS # 0.1 10^3/ul (0.0-0.5); EOSINOPHILS % 2.5 % (0.0-7.0); HEMATOCRIT 32.4 % (37.0-47.0); HEMOGLOBIN 10.4 g/dl (12.0-16.0); LYMPHOCYTES % 36.4 % (15.0-51.0); MEAN CORPUSCULAR HEMOGLOBIN 30.7 pg (29.0-33.0); MEAN CORPUSCULAR HGB CONC 32.1 g/dl (32.0-37.0); MEAN CORPUSCULAR VOLUME 95.6 fl (82.0-101.0); MONOCYTE # 0.6 10^3/ul (0.3-0.9); MONOCYTES % 10.6 % (0.0-11.0); NEUTROPHIL # 2.8 10^3/ul (1.6-7.5); NEUTROPHILS % 49.6 % (39.0-77.0); PLATELET COUNT 158 10^3/UL (140-415); RED BLOOD COUNT 3.39 10^6/ul (4.20-5.40); RED CELL DISTRIBUTION WIDTH 12.3 % (11.5-14.5); WHITE BLOOD COUNT 5.6 10^3/ul (4.8-10.8)
[2017-10-21 10:45] LABS: ALBUMIN 3.5 g/dl (3.3-4.9); ALBUMIN/GLOBULIN RATIO 1.25; CALCIUM 9.6 mg/dl (8.4-10.2); CREATININE 1.27 mg/dl (0.44-1.00); POTASSIUM 4.1 mmol/L (3.5-5.1); TOTAL PROTEIN 6.3 g/dl (6.1-8.1)
[2017-10-21] MEDS: SOD CHLORIDE 0.9% 1,000 ML IV SCH ×2 (11:40→22:39)
[2017-10-21] MEDS: INSULIN ASPART [NOVOLOG] 3 ML PEN SC SCH ×3 (12:15→20:08)
--- NOTE | 2017-10-21 12:29 | HP ---
Date/Time of Note Date/Time of Note DATE: 10/21/17 TIME: 12:14 Assessment/Plan VTE Prophylaxis VTE Prophylaxis Intervention: SCD's Lines/Catheters IV Catheter Type (from Nrsg): Peripheral IV Assessment/Plan Chief Complaint/Hosp Course Assessment/Plan -Hyperparathyroidism, s/p left lower parathyroidectomy by Dr. Zamorano on 10/21. Continue [place] and morphine for pain, Zofran as needed for nausea. Advance diet per surgery. -Chronic kidney disease stage III with baseline creatinine 1.2, continue to monitor renal function. -Diabetes mellitus type 2 continue Accu-Chek q. before meals and at bedtime with NovoLog per mild algorithm sliding scale. -Hypertension, continue lisinopril -Dyslipidemia, continue statin -Severe osteoarthritis of right knee, status post right total knee replacement. -Depression, continue Prozac. Further recommendations based on clinical course. Plan of care discussed with Dr. Ruiz. Problems: HPI/ROS Admit Date/Time Admit Date/Time Oct 21, 2017 at 05:50 Hx of Present Illness The patient is a very pleasant 62-year-old female with history of diabetes, hypertension, hyperlipidemia, hyperparathyroidism, chronic kidney disease stage III, osteoarthritis, and depression. The patient noted to have a lipase elevated calcium on routine lab and with radiologic evidence positive for a left lower hyperactive parathyroid. Patient was evaluated by Dr. Zamorano in general surgery consultation. Patient was brought to the hospital and underwent left lower parathyroidectomy. Postoperatively patient experienced moderate pain and was admitted for further evaluation and management. Patient medical history was obtained talking to patients and patient daughter at the bedside. ROS Per HPI PMH/Family/Social Past Medical History Medical History: diabetes, high cholesterol, hypertension, hyperthyroid, other (Osteoarthritis, depression, chronic kidney disease stage III) Past Surgical History Status post right total knee replacement, status post cholecystectomy, status post 3 Family History Significant Family History: diabetes Social History Alcohol Use: occasionally Smoking Status: Never smoker Drug Use: none Exam/Review of Systems Vital Signs Vitals Vital Signs Date Time Temp Pulse Resp B/P Pulse Ox O2 Delivery O2 Flow Rate FiO2 10/21/17 11:14 98.0 73 16 130/63 94 10/21/17 10:46 Room Air 10/21/17 10:21 2.0 Exam Constitutional: alert, oriented Head: atraumatic, normocephalic Eyes: nl conjunctiva Neck: other (Status post surgery), supple Respiratory: normal air movement Cardiovascular: nl pulses Gastrointestinal: non-tender, soft Extremities: normal pulses Neurological: nl mental status Skin: nl turgor Labs Result Diagram: 10/21/17 1011 10/21/17 1011 Medications Medications Current Medications Cefazolin Sodium/ Dextrose (Ancef 2 Gm/50 ml (Pmx)) 50 ml @ 100 mls/hr Q8H IVPB Last administered on 10/21/17t 10:15; Admin Dose 100 MLS/HR; Start 10/21 at 10:00; Stop 10/22/17 at 09:59 Morphine Sulfate (morphine) 2 mg Q2H PRN IV PAIN LEVEL 6-10; Start 10/21/17 at 10:00 Acetaminophen/ Hydrocodone Bitart 1 tab 1 tab Q6H PRN PO PAIN LEVEL 6-10; Start 10/21/17 at 10:00 Sodium Chloride (NS) 1,000 ml @ 100 mls/hr Q10H IV Last administered on t 11:40; Admin Dose 100 MLS/HR; Start 10/21/17 at 09:42 Diagnostic Test (Pha) (Accu-Chek) 1 ea 02 XX ; Start 10/22/17 at 02:00 Miscellaneous Information 1 ea NOTE XX ; Start 10/21/17 at 12:30 Glucose (Glutose) 15 gm Q15M PRN PO DECREASED GLUCOSE; Start 10/21/17 at 12:30 Glucose (Glutose) 22.5 gm Q15M PRN PO DECREASED GLUCOSE; Start 10/21/17 at 12: 30 Dextrose (D50w Syringe) 25 ml Q15M PRN IV DECREASED GLUCOSE; Start 10/21/17 at 12:30 Dextrose (D50w Syringe) 50 ml Q15M PRN IV DECREASED GLUCOSE; Start 10/21/17 at 12:30 Glucagon (Glucagen) 1 mg Q15M PRN IM DECREASED GLUCOSE; Start 10/21/17 at 12: 30 Glucose (Glutose) 15 gm Q15M PRN BUCCAL DECREASED GLUCOSE; Start 10/21/17 at 12:30 ZONIA CRANE Oct 21, 2017 12:24
[2017-10-21] MEDS ORDERED: GLUCAGON 1 MG INJ IM PRN (12:30)
[2017-10-21] MEDS ORDERED: GLUCOSE GEL 15 GRAM TUBE BUCCAL PRN (12:30)
[2017-10-21] MEDS ORDERED: GLUCOSE GEL 15 GRAM TUBE PO PRN ×2 (12:30)
[2017-10-21] MEDS ORDERED: DEXTROSE 50% 50 ML SYRINGE IV PRN ×2 (12:30)
[2017-10-21] MEDS: morphine 2 MG INJ IV PRN ×2 (15:28→21:43)
[2017-10-22 02:00] VITALS: BP 99/50; RESP 18
[2017-10-22] MEDS ORDERED: ACCU-CHEK XX SCH (02:00)
[2017-10-22] MEDS: CEFAZOLIN 2 GM/50 ML (PMX) 50 ML IVPB SCH (03:30)
[2017-10-22 05:49] LABS: BASOPHILS % 0.1 % (0.0-2.0); HEMATOCRIT 29.3 % (37.0-47.0); HEMOGLOBIN 9.5 g/dl (12.0-16.0); LYMPHOCYTES % 10.9 % (15.0-51.0); MEAN CORPUSCULAR HEMOGLOBIN 30.8 pg (29.0-33.0); MEAN CORPUSCULAR HGB CONC 32.4 g/dl (32.0-37.0); MEAN CORPUSCULAR VOLUME 95.1 fl (82.0-101.0); MEAN PLATELET VOLUME 10.9 fl (7.4-10.4); MONOCYTE # 0.9 10^3/ul (0.3-0.9); MONOCYTES % 9.6 % (0.0-11.0); NEUTROPHIL # 7.2 10^3/ul (1.6-7.5); NEUTROPHILS % 79.1 % (39.0-77.0); PLATELET COUNT 158 10^3/UL (140-415); RED BLOOD COUNT 3.08 10^6/ul (4.20-5.40); RED CELL DISTRIBUTION WIDTH 12.3 % (11.5-14.5); WHITE BLOOD COUNT 9.1 10^3/ul (4.8-10.8)
[2017-10-22] MEDS ORDERED: PANTOPRAZOLE (EC) 40 MG TAB PO SCH (06:00)
[2017-10-22 06:34] LABS: ALBUMIN 3.2 g/dl (3.3-4.9); ALBUMIN/GLOBULIN RATIO 1.18; CALCIUM 8.3 mg/dl (8.4-10.2); CREATININE 1.26 mg/dl (0.44-1.00); POTASSIUM 4.9 mmol/L (3.5-5.1); TOTAL PROTEIN 5.9 g/dl (6.1-8.1)
[2017-10-22 07:48] VITALS: BP 105/55; RESP 16
[2017-10-22] MEDS: INSULIN ASPART [NOVOLOG] 3 ML PEN SC SCH ×2 (08:15→12:15)
[2017-10-22] MEDS ORDERED: LISINOPRIL 10 MG TAB PO SCH (09:00)
[2017-10-22] MEDS ORDERED: FLUOXETINE 20 MG CAP PO SCH (09:00)
[2017-10-22] MEDS: SOD CHLORIDE 0.9% 1,000 ML IV SCH (09:32)
[2017-10-22 13:47] VITALS: BP 93/50; RESP 16
[2017-10-22] MEDS ORDERED: HYDR-3498 PO (15:28)
--- NOTE | 2017-10-22 15:31 | DS ---
Date/Time of Note Date/Time of Note DATE: 10/22/17 TIME: 15:30 Discharge Summary Admission/Discharge Info Admit Date/Time Oct 21, 2017 at 05:50 Discharge Date/Time Patient Condition: Stable Hx of Present Illness The patient is a very pleasant 62-year-old female with history of diabetes, hypertension, hyperlipidemia, hyperparathyroidism, chronic kidney disease stage III, osteoarthritis, and depression. The patient noted to have a lipase elevated calcium on routine lab and with radiologic evidence positive for a left lower hyperactive parathyroid. Patient was evaluated by Dr. Zamorano in general surgery consultation. Patient was brought to the hospital and underwent left lower parathyroidectomy. Postoperatively patient experienced moderate pain and was admitted for further evaluation and management. Patient medical history was obtained talking to patients and patient daughter at the bedside. Hospital Course -Hyperparathyroidism, s/p left lower parathyroidectomy by Dr. Zamorano on 10/21. Continue [place] and morphine for pain, Zofran as needed for nausea. Patient was able to tolerate diet without any difficulty swallowing. Pain is well controlled -Chronic kidney disease stage III with baseline creatinine 1.2, continue to monitor renal function. -Diabetes mellitus type 2 continue Accu-Chek q. before meals and at bedtime with NovoLog per mild algorithm sliding scale. -Hypertension, continue lisinopril -Dyslipidemia, continue statin -Severe osteoarthritis of right knee, status post right total knee replacement. -Depression, continue Prozac. Home Meds Reported Medications Simvastatin* (Zocor*) 10 Mg Tablet, 10 MG PO QHS, #30 TAB 10/21/17 Cholecalciferol* (Vitamin D3*) 1,000 Unit Tablet, 1000 UNIT PO DAILY, TAB 10/21/17 Sitagliptin* (Januvia*) 100 Mg Tablet, 100 MG PO DAILY, #30 TAB 10/21/17 Metformin Hcl* (Metformin Hcl*) 500 Mg Tablet, 500 MG PO WITH BREAKFAST DINNE, # 30 TAB 10/21/17 Glimepiride* (Glimepiride*) 4 Mg Tablet, 4 MG PO WITH BREAKFAST DINNE, TAB 10/21/17 Fluoxetine Hcl* (Prozac*) 20 Mg Capsule, 20 MG PO DAILY, CAP 10/21/17 Fluticasone Propionate* (Fluticasone Propionate* Nasal) 50 Mcg/Palmer - 16 Gm Palmer.susp, 1 SPRAY NASAL DAILY, #1 BOTTLE TO EACH NOSTRIL 11/27/17 Loratadine* (Claritin*) 10 Mg Capsule, 10 MG PO DAILY, CAP 10/21/17 Lisinopril* (Lisinopril*) 10 Mg Tablet, 10 MG PO DAILY, #30 TAB 07/12/17 Omeprazole* (Omeprazole*) 20 Mg Capsule.dr, 20 MG PO DAILY, #30 CAP 07/12/17 Discontinued Reported Medications Simvastatin (Simvastatin) 10 Mg Tablet, 10 MG PO DAILY, #30 TAB 07/12/17 Fluoxetine Hcl* (Fluoxetine Hcl*) 10 Mg Capsule, 10 MG PO DAILY, CAP 07/12/17 Glimepiride* (Glimepiride*) 4 Mg Tablet, 4 MG PO WITH BREAKFAST, TAB 07/12/17 Sitagliptin* (Januvia*) 100 Mg Tablet, 100 MG PO DAILY, #30 TAB 07/12/17 Ergocalciferol (Vitamin D2) (VITAMIN D2) 50,000 Unit Capsule, 30529 UNIT PO, CAP 07/12/17 Discontinued Scripts Hydrocodone/Acetaminophen (Bul[place] 5-325 Tablet) 1 Each Tablet, 1 EACH PO Q4 for PAIN, #30 TAB Prov:ZONIA CRANE 07/15/17 Metformin Hcl* (Metformin Hcl*) 1,000 Mg Tablet, 1000 MG PO WITH BREAKFAST DINNE , #60 TAB Prov:ZONIA CRANE 07/15/17 Aspirin (Aspir-Kimberly) 325 Mg Tablet., 325 MG PO BID for 14 Days Prov:ZONIA CRANE 07/15/17 Follow-up Plan Follow-up with Dr. Zamorano in 1-2 weeks Primary Care Provider [facility] Pending Labs Laboratory Tests Test 10/21/17 17:43 10/21/17 20:02 10/22/17 02:56 10/22/17 05:18 Bedside Glucose 301mg/dL (70-220) 270mg/dL (70-220) 165mg/dL (70-220) White Blood Count 9.110^3/ul (4.8-10.8) Red Blood Count 3.0810^6/ul (4.20-5.40) Hemoglobin 9.5g/dl (12.0-16.0) Hematocrit 29.3% (37.0-47.0) Mean Corpuscular Volume 95.1fl (82.0-101.0) Mean Corpuscular Hemoglobin 30.8pg (29.0-33.0) Mean Corpuscular Hemoglobin Concent 32.4g/dl (32.0-37.0) Red Cell Distribution Width 12.3% (11.5-14.5) Platelet Count 49258^3/UL (140-415) Mean Platelet Volume 10.9fl (7.4-10.4) Neutrophils % 79.1% (39.0-77.0) Lymphocytes % 10.9% (15.0-51.0) Monocytes % 9.6% (0.0-11.0) Eosinophils % 0.0% (0.0-7.0) Basophils % 0.1% (0.0-2.0) Nucleated Red Blood Cells % 0.0/100WBC (0.0-0.0) Neutrophils # 7.210^3/ul (1.6-7.5) Lymphocytes # 1.010^3/ul (0.8-2.9) Monocytes # 0.910^3/ul (0.3-0.9) Eosinophils # 0.010^3/ul (0.0-0.5) Basophils # 0.010^3/ul (0.0-0.1) Nucleated Red Blood Cells # 0.010^3/ul (0.0-0.0) Sodium Level 142mmol/L (135-144) Potassium Level 4.9mmol/L (3.5-5.1) Chloride Level 108mmol/L (97-110) Carbon Dioxide Level 23mmol/L (21-31) Anion Gap 16 (8-16) Blood Urea Nitrogen 18mg/dl (7-20) Creatinine 1.26mg/dl (0.44-1.00) Glucose Level 145mg/dl (70-220) Calcium Level 8.3mg/dl (8.4-10.2) Total Bilirubin 0.0mg/dl (0.2-1.3) Direct Bilirubin 0.00mg/dl (0.00-0.20) Indirect Bilirubin 0.0mg/dl (0-1.1) Aspartate Amino Transf (AST/SGOT) 38IU/L (15-46) Alanine Aminotransferase (ALT/SGPT) 45IU/L (13-69) Alkaline Phosphatase 127IU/L (42-121) Total Protein 5.9g/dl (6.1-8.1) Albumin 3.2g/dl (3.3-4.9) Globulin 2.70g/dl (1.3-3.2) Albumin/Globulin Ratio 1.18 Test 10/22/17 08:05 10/22/17 12:01 Bedside Glucose 97mg/dL (70-220) 113mg/dL (70-220) ZONIA CRANE Oct 22, 2017 15:31
== END 2017-10-22 17:10 | disposition home or self-care (01) | DRG 627 ==
LOC: REC 05:50 → MS2 11:00 → EDSTATUS 11:00
PROVIDERS: ADMIT Surgery; ATTEND Surgery
PROC: 0GBP0ZZ Excision of Left Inferior Parathyroid Gland, Open Approach (ICD-10-PCS; principal; 2017-10-21 08:30)
DX: E21.0 Primary hyperparathyroidism (principal); N18.3 Chronic kidney disease, stage 3 (moderate); I12.9 Hypertensive chronic kidney disease with stage 1 through stage 4 chronic kidney disease, or unspecified chronic kidney disease; E11.9 Type 2 diabetes mellitus without complications; F32.9 Major depressive disorder, single episode, unspecified
CPT/HCPCS: 80053; 82962; 85025; 88305; 88331; J0690; J1100; J1170; J1815; J2270; J2405; J3010; J7030

== ENCOUNTER 2018-06-30 14:04 | Observation (INO) | END 2018-07-01 17:30 | disposition home or self-care (01) ==

== ENCOUNTER 2018-07-05 22:41 | Emergency (ER) | END 2018-07-06 00:01 | disposition home or self-care (01) ==